=== PATIENT | male | born 1950 | race Caucasian/White ===

== ENCOUNTER 2017-05-21 14:54 | Inpatient (IN) | payer MEDICARE ==
[~2017-05-21] VITALS: Ht 188 cm; Wt 71.8 kg
[~2017-05-21 14:54] MED LIST: AMIO200T42 PO; ATOR40TA PO; CARV6.2512 PO; ENAL20TA PO; FURO-92 PO; GLIP10TA13 PO; GLYBURIDE; LASIX PO; LISI-167 PO; METF-86 PO; POTA20TA89 PO; POTASSIUM PO; TAMS-11 PO; WARF3TAB PO
[2017-05-21] MEDS ORDERED: FENTANYL PF 100 MCG/2ML ONE (15:28)
[2017-05-21] MEDS ORDERED: MIDAZOLAM 1 MG/ML, 5ML ONE (15:28)
[2017-05-21] MEDS ORDERED: TICAGRELOR 90 MG TABLET ONE (15:29)
[2017-05-21] MEDS ORDERED: BIVALIRUDIN 250 MG ONE ×2 (15:29→16:36)
[2017-05-21] MEDS ORDERED: VERAPAMIL 2.5 MG/ML, 2ML ONE (15:29)
[2017-05-21] MEDS ORDERED: LIDOCAINE 2%, 20ML ONE (15:29)
[2017-05-21] MEDS ORDERED: HEPARIN 1,000 UNITS/ML, 10ML ONE (15:29)
[2017-05-21] MEDS ORDERED: SODIUM CHLORIDE 0.9% 1,000ML IVBOLUS ONE (15:30)
[2017-05-21] MEDS ORDERED: SODIUM CHLORIDE 0.9% 1,000 ML IV SCH (15:30)
[2017-05-21] MEDS ORDERED: ASPIRIN 325 MG TABLET PO STA (15:30)
[2017-05-21] MEDS ORDERED: ONDANSETRON 2MG/ML, 2ML IM ONE (15:30)
[2017-05-21 15:58] LABS: BLOOD UREA NITROGEN 16 mg/dL (7-18)
[2017-05-21] MEDS ORDERED: ONDANSETRON 2MG/ML, 2ML IVPush PRN (16:00)
[2017-05-21] MEDS ORDERED: BISACODYL 5 MG EC TABLET PO PRN (16:00)
[2017-05-21] MEDS ORDERED: LABETALOL 5MG/ML, 20ML ONE (16:00)
[2017-05-21] MEDS ORDERED: ACETAMINOPHEN 325 MG TABLET PO PRN (16:00)
[2017-05-21] MEDS ORDERED: morphine SULFATE 10 MG/ML, 1ML IVPush PRN (16:00)
[2017-05-21] MEDS ORDERED: ZOLPIDEM 5MG TABLET PO PRN (16:00)
[2017-05-21] MEDS ORDERED: ASPIRIN 325 MG TABLET EC ONE (16:12)
[2017-05-21 16:20] LABS: IS PT STATUS REG ER OR PRE ER? YES
[2017-05-21] MEDS: CARVEDILOL 25 MG TABLET PO SCH (18:46)
[2017-05-21] MEDS: ENALAPRIL 10 MG TABLET PO SCH (20:32)
[2017-05-21] MEDS: TAMSULOSIN 0.4 MG CAP.ER.24H PO SCH (20:32)
[2017-05-21] MEDS ORDERED: ATORVASTATIN 40 MG TABLET PO SCH (21:00)
[2017-05-21 22:39] LABS: IS PT STATUS REG ER OR PRE ER? NO
[2017-05-22] MEDS: CARVEDILOL 25 MG TABLET PO SCH ×2 (05:44→19:47)
[2017-05-22] MEDS: ASPIRIN 81 MG TABLET EC PO SCH (05:44)
[2017-05-22 05:54] LABS: BLOOD UREA NITROGEN 20 mg/dL (7-18)
[2017-05-22 06:16] LABS: IS PT STATUS REG ER OR PRE ER? NO
[2017-05-22] MEDS ORDERED: TICAGRELOR 90 MG TABLET PO SCH (08:00)
[2017-05-22] MEDS ORDERED: POTASSIUM CHLORIDE 20 MEQ TAB.ER.PRT PO ONE (09:00)
[2017-05-22] MEDS: ENALAPRIL 10 MG TABLET PO SCH ×2 (09:00→19:47)
[2017-05-22] MEDS ORDERED: FUROSEMIDE 40 MG TABLET PO SCH (09:00)
[2017-05-22] MEDS: FINASTERIDE 5 MG TABLET PO SCH (09:23)
[2017-05-22] MEDS: GLIPizide ER 5 MG TABLET PO SCH (09:24)
[2017-05-22] MEDS: EZETIMIBE 10 MG TABLET PO SCH (09:24)
[2017-05-22] MEDS: GlyBURIDE 5 MG TABLET PO SCH (09:24)
[2017-05-22 19:44] VITALS: BP 108/66
[2017-05-22] MEDS: ATORVASTATIN 80 MG TABLET PO SCH (19:47)
[2017-05-22] MEDS: TAMSULOSIN 0.4 MG CAP.ER.24H PO SCH (19:47)
[2017-05-22] MEDS: TICAGRELOR 90 MG TABLET PO SCH (21:59)
[2017-05-23 01:32] VITALS: BP 103/57
[2017-05-23 05:27] LABS: BLOOD UREA NITROGEN 33 mg/dL (7-18)
[2017-05-23] MEDS: ASPIRIN 81 MG TABLET EC PO SCH (05:29)
[2017-05-23] MEDS: CARVEDILOL 25 MG TABLET PO SCH ×2 (05:31→17:40)
[2017-05-23] MEDS ORDERED: TICAGRELOR 90 MG TABLET PO SCH (09:00)
[2017-05-23 09:11] VITALS: BP 93/59
[2017-05-23] MEDS: EZETIMIBE 10 MG TABLET PO SCH (09:12)
[2017-05-23] MEDS: FINASTERIDE 5 MG TABLET PO SCH (09:13)
[2017-05-23] MEDS: GlyBURIDE 5 MG TABLET PO SCH (09:13)
[2017-05-23] MEDS: TICAGRELOR 90 MG TABLET PO SCH ×2 (09:13→19:54)
[2017-05-23] MEDS: GLIPizide ER 5 MG TABLET PO SCH (09:13)
[2017-05-23] MEDS: ENALAPRIL 10 MG TABLET PO SCH (09:13)
[2017-05-23 10:57] VITALS: BP 120/72
[2017-05-23] MEDS: FUROSEMIDE 40 MG TABLET PO SCH (10:58)
[2017-05-23 17:39] VITALS: BP 138/81
[2017-05-23 18:27] VITALS: BP 115/69
[2017-05-23] MEDS: TAMSULOSIN 0.4 MG CAP.ER.24H PO SCH (19:54)
[2017-05-23] MEDS: ATORVASTATIN 80 MG TABLET PO SCH (19:54)
[2017-05-24 03:26] VITALS: BP 146/73
[2017-05-24 05:22] LABS: BLOOD UREA NITROGEN 28 mg/dL (7-18)
[2017-05-24 06:17] VITALS: BP 138/78
[2017-05-24] MEDS: ASPIRIN 81 MG TABLET EC PO SCH (06:18)
[2017-05-24] MEDS: CARVEDILOL 25 MG TABLET PO SCH (06:18)
[2017-05-24 06:40] VITALS: BP 125/79
[2017-05-24] MEDS: GlyBURIDE 5 MG TABLET PO SCH (07:55)
[2017-05-24] MEDS: EZETIMIBE 10 MG TABLET PO SCH (07:55)
[2017-05-24] MEDS: GLIPizide ER 5 MG TABLET PO SCH (07:55)
[2017-05-24] MEDS: FINASTERIDE 5 MG TABLET PO SCH (07:55)
[2017-05-24] MEDS: TICAGRELOR 90 MG TABLET PO SCH (07:55)
[2017-05-24] MEDS: FUROSEMIDE 40 MG TABLET PO SCH (07:56)
[2017-05-24] MEDS ORDERED: ENAL2.5T32 PO (08:20)
[2017-05-24] MEDS ORDERED: ASPI-621 PO (08:20)
[2017-05-24] MEDS ORDERED: ATOR80TA75 PO (08:20)
[2017-05-24] MEDS ORDERED: TICA90TA PO (08:20)
[2017-05-24] MEDS ORDERED: ENALAPRIL 10 MG TABLET PO SCH (09:00)
== END 2017-05-24 11:25 | disposition home or self-care (01) | DRG 247 ==
LOC: ED 15:36 → EDIP 15:37 → ED 15:42 → CCU 16:25 → 5SO 05-22 09:57 → DCLOUNGE 05-24 10:46
PROVIDERS: ADMIT Internal Medicine Cardiovascular Disease; ATTEND Internal Medicine Cardiovascular Disease
PROC: 027034Z Dilation of Coronary Artery, One Artery with Drug-eluting Intraluminal Device, Percutaneous Approach (ICD-10-PCS; principal; 2017-05-21)
PROC: 4A023N7 Measurement of Cardiac Sampling and Pressure, Left Heart, Percutaneous Approach (ICD-10-PCS; 2017-05-21)
PROC: B2111ZZ Fluoroscopy of Multiple Coronary Arteries using Low Osmolar Contrast (ICD-10-PCS; 2017-05-21)
DX: I21.09 ST elevation (STEMI) myocardial infarction involving other coronary artery of anterior wall (principal); I25.5 Ischemic cardiomyopathy; I10 Essential (primary) hypertension; I25.2 Old myocardial infarction; E78.5 Hyperlipidemia, unspecified; E11.65 Type 2 diabetes mellitus with hyperglycemia; E11.21 Type 2 diabetes mellitus with diabetic nephropathy; I07.1 Rheumatic tricuspid insufficiency; E78.00 Pure hypercholesterolemia, unspecified; I25.10 Atherosclerotic heart disease of native coronary artery without angina pectoris; J44.9 Chronic obstructive pulmonary disease, unspecified; N40.0 Benign prostatic hyperplasia without lower urinary tract symptoms; Z79.01 Long term (current) use of anticoagulants; Z79.82 Long term (current) use of aspirin; Z87.891 Personal history of nicotine dependence; Z95.810 Presence of automatic (implantable) cardiac defibrillator
CPT/HCPCS: 36415; 71010; 80047; 80048; 80061; 82010; 82040; 82800; 82962; 83735; 83880; 84484; 85025; 85610; 85730; 87081; 93005; 93454; 99156; 99157; 99285; C1760; C1894; C8929; J0583; J1644; J2250; J3010; J3490; C1725; C1769; C1874; C1887; Q9967

== ENCOUNTER 2018-06-01 17:58 | Inpatient (IN) | payer MEDICARE, OTHER ==
[~2018-06-01] VITALS: Ht 185.4 cm; Wt 77.0 kg
[~2018-06-01 17:58] MED LIST changes: +ASPI-621 PO; +ATOR-2 PO; +ENAL2.5T32 PO; +METF-162 PO; -METF-86 PO; +TICA90TA PO
[2018-06-01] MEDS ORDERED: POTA20PA PO (18:43)
[2018-06-01] MEDS ORDERED: WARF1TAB PO (18:43)
[2018-06-01] MEDS ORDERED: FINA5TAB4 PO (18:43)
[2018-06-01] MEDS ORDERED: ONDANSETRON ODT 4 MG ONE (18:52)
[2018-06-01] MEDS ORDERED: ONDANSETRON ODT 4 MG PO ONE (19:00)
[2018-06-01 19:11] LABS: BASOPHILS # (AUTO) 0.04 x10^3/uL (0-0.1); BASOPHILS % (AUTO) 0 % (0-1); EOSINOPHILS # (AUTO) 0.24 x10^3/uL (0-0.4); EOSINOPHILS % (AUTO) 2 % (1-7); LYMPHOCYTES # (AUTO) 1.03 x10^3/uL (1-3.4); LYMPHOCYTES % (AUTO) 10 % (22-44); MD NO; MEAN CORPUSCULAR HGB CONC 32.9 g/dL (33.2-36.2); MEAN CORPUSCULAR VOLUME 85.1 fL (81-97); MEAN PLATELET VOLUME 7.7 fL (7.4-10.4); MONOCYTES # (AUTO) 0.61 x10^3/uL (0.2-0.8); MONOCYTES % (AUTO) 6 % (2-9); NEUTROPHILS # (AUTO) 8.86 x10^3/uL (1.8-6.8); NEUTROPHILS % (AUTO) 82 % (42-75); PLATELET COUNT 262 x10^3/uL (130-400); RED BLOOD COUNT 4.62 x10^6/uL (4.38-5.82); RED CELL DISTRIBUTION WIDTH 13.6 % (9.4-14.8)
[2018-06-01 19:21] LABS: ALANINE AMINOTRANSFERASE 15 U/L (12-78); ALBUMIN 3.8 g/dL (3.4-5.0); ANION GAP 7 mmol/L (5-15); CALCIUM 9.3 mg/dL (8.5-10.1); CHLORIDE 111 mmol/L (98-107); CREATININE 2.74 mg/dL (0.7-1.3)
[2018-06-01 19:25] LABS: ALKALINE PHOSPHATASE 79 U/L (45-117); BILIRUBIN,TOTAL 0.7 mg/dL (0.2-1.0); TOTAL PROTEIN 7.8 g/dL (6.4-8.2); TROPONIN I < 0.015 ng/mL (0.000-0.045)
[2018-06-01 19:38] LABS: MICROSCOPIC NOT IND
[2018-06-01 19:40] LABS: CULTURE INDICATED? NO
[2018-06-01] MEDS ORDERED: SODIUM CHLORIDE 0.9% 1,000ML IVBOLUS ONE (20:00)
[2018-06-01] MEDS ORDERED: SODIUM CHLORIDE 0.9% 1,000 ML IV ONE (20:09)
[2018-06-01] MEDS ORDERED: SODIUM CHLORIDE 0.9% 1,000 ML IV SCH (20:23)
[2018-06-01] MEDS ORDERED: HEPARIN 5,000 UNITS/ML, 1ML SQ SCH (20:30)
[2018-06-01] MEDS ORDERED: BISACODYL 10 MG SUPP PR PRN (20:30)
[2018-06-01] MEDS ORDERED: POLYETHYLENE GLYCOL 17 GM PACKET PO PRN (20:30)
[2018-06-01] MEDS ORDERED: DOCUSATE 100 MG CAPSULE PO PRN (20:30)
[2018-06-01] MEDS ORDERED: ACETAMINOPHEN 325 MG TABLET PO PRN (20:30)
[2018-06-01] MEDS ORDERED: MAALOX/HYOSCYAMINE/LIDOCAINE 45 ML BTL PO ONE (20:30)
[2018-06-01] MEDS ORDERED: ONDANSETRON 2MG/ML, 2ML IVPush PRN ×2 (20:30)
[2018-06-01 20:38] LABS: PROTHROMBIN TIME 10.4 Seconds (9.6-11.5)
[2018-06-01 21:38] VITALS: BP 137/74
[2018-06-01 21:50] VITALS: BP 137/74
[2018-06-01] MEDS: ATORVASTATIN 80 MG TABLET PO SCH (22:32)
[2018-06-01] MEDS: TICAGRELOR 90 MG TABLET PO SCH (22:32)
[2018-06-01] MEDS: SUCRALFATE 1 GM/10 ML UDC PO SCH (22:32)
[2018-06-01] MEDS: SODIUM CHLORIDE 0.9% 1,000 ML IV SCH (22:45)
[2018-06-02 02:12] VITALS: BP 146/77
[2018-06-02 02:23] LABS: CREATININE,URINE RANDOM 78.5 mg/dL
[2018-06-02 05:20] LABS: INTERNATIONAL NORMALIZED RATIO 1.02 (0.93-1.1); PROTHROMBIN TIME 10.6 Seconds (9.6-11.5)
[2018-06-02 05:28] LABS: CHLORIDE 115 mmol/L (98-107)
[2018-06-02 05:33] LABS: BASOPHILS # (AUTO) 0.05 x10^3/uL (0-0.1); BASOPHILS % (AUTO) 1 % (0-1); EOSINOPHILS # (AUTO) 0.23 x10^3/uL (0-0.4); EOSINOPHILS % (AUTO) 3 % (1-7); LYMPHOCYTES # (AUTO) 1.41 x10^3/uL (1-3.4); LYMPHOCYTES % (AUTO) 20 % (22-44); MD NO; MEAN CORPUSCULAR HEMOGLOBIN 27.7 pg (27.5-34.5); MEAN CORPUSCULAR HGB CONC 33.1 g/dL (33.2-36.2); MEAN CORPUSCULAR VOLUME 83.8 fL (81-97); MEAN PLATELET VOLUME 7.9 fL (7.4-10.4); MONOCYTES # (AUTO) 0.55 x10^3/uL (0.2-0.8); MONOCYTES % (AUTO) 8 % (2-9); NEUTROPHILS # (AUTO) 4.85 x10^3/uL (1.8-6.8); NEUTROPHILS % (AUTO) 69 % (42-75); PLATELET COUNT 229 x10^3/uL (130-400); RED BLOOD COUNT 4.15 x10^6/uL (4.38-5.82); RED CELL DISTRIBUTION WIDTH 13.4 % (9.4-14.8)
[2018-06-02 05:44] LABS: ANION GAP 6 mmol/L (5-15); CALCIUM 8.4 mg/dL (8.5-10.1); CREATININE 2.11 mg/dL (0.7-1.3)
[2018-06-02] MEDS: ASPIRIN 81 MG TABLET EC PO SCH (05:45)
[2018-06-02 07:25] VITALS: BP 147/72
[2018-06-02] MEDS: FINASTERIDE 5 MG TABLET PO SCH (08:07)
[2018-06-02] MEDS: TAMSULOSIN 0.4 MG CAP.ER.24H PO SCH (08:08)
[2018-06-02] MEDS: TICAGRELOR 90 MG TABLET PO SCH ×2 (08:08→22:06)
[2018-06-02] MEDS: CARVEDILOL 6.25 MG TABLET PO SCH (08:08)
[2018-06-02] MEDS: SUCRALFATE 1 GM/10 ML UDC PO SCH ×4 (08:08→22:06)
[2018-06-02] MEDS ORDERED: TEMPLATE NON-FORMULARY MED. (Warfarin Sodium** (Coumadin**) 3 MG) PO SCH (09:00)
[2018-06-02 12:19] VITALS: BP 150/80
[2018-06-02 19:29] VITALS: BP 136/73
[2018-06-02] MEDS: ATORVASTATIN 80 MG TABLET PO SCH (22:06)
[2018-06-03 00:50] VITALS: BP 111/63
[2018-06-03 01:23] VITALS: BP 155/75
[2018-06-03] MEDS: SODIUM CHLORIDE 0.9% 1,000 ML IV SCH (01:25)
[2018-06-03 05:25] LABS: BASOPHILS # (AUTO) 0.05 x10^3/uL (0-0.1); BASOPHILS % (AUTO) 1 % (0-1); EOSINOPHILS # (AUTO) 0.21 x10^3/uL (0-0.4); EOSINOPHILS % (AUTO) 3 % (1-7); LYMPHOCYTES # (AUTO) 1.23 x10^3/uL (1-3.4); LYMPHOCYTES % (AUTO) 16 % (22-44); MD NO; MEAN CORPUSCULAR HGB CONC 33.3 g/dL (33.2-36.2); MEAN CORPUSCULAR VOLUME 83.9 fL (81-97); MEAN PLATELET VOLUME 7.6 fL (7.4-10.4); MONOCYTES # (AUTO) 0.55 x10^3/uL (0.2-0.8); MONOCYTES % (AUTO) 7 % (2-9); NEUTROPHILS # (AUTO) 5.92 x10^3/uL (1.8-6.8); NEUTROPHILS % (AUTO) 74 % (42-75); PLATELET COUNT 220 x10^3/uL (130-400); RED CELL DISTRIBUTION WIDTH 13.4 % (9.4-14.8)
[2018-06-03 05:30] LABS: INTERNATIONAL NORMALIZED RATIO 1.04 (0.93-1.1); PROTHROMBIN TIME 10.8 Seconds (9.6-11.5)
[2018-06-03 05:38] LABS: ANION GAP 7 mmol/L (5-15); CALCIUM 7.7 mg/dL (8.5-10.1); CHLORIDE 117 mmol/L (98-107)
[2018-06-03 05:40] LABS: CREATININE 1.56 mg/dL (0.7-1.3)
[2018-06-03] MEDS: ASPIRIN 81 MG TABLET EC PO SCH (05:47)
[2018-06-03 07:05] VITALS: BP 147/73
[2018-06-03] MEDS: TAMSULOSIN 0.4 MG CAP.ER.24H PO SCH (08:43)
[2018-06-03] MEDS: CARVEDILOL 6.25 MG TABLET PO SCH (08:43)
[2018-06-03] MEDS: SUCRALFATE 1 GM/10 ML UDC PO SCH ×4 (08:43→21:40)
[2018-06-03] MEDS: FINASTERIDE 5 MG TABLET PO SCH (08:43)
[2018-06-03] MEDS: TICAGRELOR 90 MG TABLET PO SCH ×2 (08:43→19:42)
[2018-06-03 14:37] VITALS: BP 137/73
[2018-06-03 19:24] VITALS: BP 146/70
[2018-06-03] MEDS: ATORVASTATIN 80 MG TABLET PO SCH (19:42)
[2018-06-04 03:47] VITALS: BP 112/66
[2018-06-04 05:40] LABS: ANION GAP 8 mmol/L (5-15); CALCIUM 7.8 mg/dL (8.5-10.1); CHLORIDE 115 mmol/L (98-107)
[2018-06-04 05:43] LABS: CREATININE 1.19 mg/dL (0.7-1.3)
[2018-06-04] MEDS: ASPIRIN 81 MG TABLET EC PO SCH (06:04)
[2018-06-04 06:42] VITALS: BP 166/87
[2018-06-04] MEDS: SUCRALFATE 1 GM/10 ML UDC PO SCH ×2 (08:27→11:11)
[2018-06-04] MEDS ORDERED: SUCR1ORA5 PO (09:24)
[2018-06-04] MEDS ORDERED: ONDA4TAB7 PO (09:24)
[2018-06-04] MEDS ORDERED: PANT40TA3 PO (09:24)
[2018-06-04] MEDS ORDERED: FURO-93 PO (09:32)
[2018-06-04] MEDS ORDERED: POTA10TA11 PO (09:32)
[2018-06-04] MEDS: TICAGRELOR 90 MG TABLET PO SCH (11:09)
[2018-06-04] MEDS: FINASTERIDE 5 MG TABLET PO SCH (11:09)
[2018-06-04] MEDS: CARVEDILOL 6.25 MG TABLET PO SCH (11:10)
[2018-06-04] MEDS: TAMSULOSIN 0.4 MG CAP.ER.24H PO SCH (11:10)
== END 2018-06-04 14:05 | disposition home or self-care (01) | DRG 683 ==
LOC: ED 20:08 → EDIP 20:09 → 3NE 21:00 → DCLOUNGE 06-04 13:46
PROVIDERS: ADMIT Internal Medicine; ATTEND Internal Medicine
DX: N17.0 Acute kidney failure with tubular necrosis (principal); I50.22 Chronic systolic (congestive) heart failure; E86.9 Volume depletion, unspecified; D72.829 Elevated white blood cell count, unspecified; I25.10 Atherosclerotic heart disease of native coronary artery without angina pectoris; I11.9 Hypertensive heart disease without heart failure; I25.5 Ischemic cardiomyopathy; E11.65 Type 2 diabetes mellitus with hyperglycemia; E78.00 Pure hypercholesterolemia, unspecified; E78.5 Hyperlipidemia, unspecified; E86.0 Dehydration; I11.0 Hypertensive heart disease with heart failure; J44.9 Chronic obstructive pulmonary disease, unspecified; R33.9 Retention of urine, unspecified; K21.9 Gastro-esophageal reflux disease without esophagitis; N40.1 Benign prostatic hyperplasia with lower urinary tract symptoms; Z79.84 Long term (current) use of oral hypoglycemic drugs; Z83.3 Family history of diabetes mellitus; Z87.891 Personal history of nicotine dependence; I25.2 Old myocardial infarction; Z95.5 Presence of coronary angioplasty implant and graft; Z95.810 Presence of automatic (implantable) cardiac defibrillator
CPT/HCPCS: 36415; 76770; 80048; 80053; 81003; 82436; 82570; 83690; 84133; 84300; 84484; 85025; 85610; 93005; Q0162; J7030

== ENCOUNTER 2019-07-04 19:39 | Emergency (ER) | payer MEDICARE, OTHER ==
[~2019-07-04] VITALS: Ht 185.4 cm; Wt 71.6 kg
[~2019-07-04 19:39] MED LIST changes: -ASPI-621 PO; +ASPI81TA45 PO; +FINA5TAB4 PO; +FURO-93 PO; +ONDA4TAB7 PO; +PANT40TA3 PO; +POTA10TA11 PO; +POTA20PA31 PO; +SUCR1ORA5 PO; +WARF1TAB PO
[2019-07-04 20:37] LABS: MICROSCOPIC AUTO
[2019-07-04 20:38] LABS: CULTURE INDICATED? NO
--- NOTE | 2019-07-04 20:48 | NUR ---
LATE ENTRY FOR TIME OF ARRIVAL TO ROOM. BLADDER SCAN PERFORMED WHICH READ >999ML. [place] PLACED PER ORDER. APPROX 1400ML OUT. POST PLACEMENT PT STATES RELIEF HOWEVER STILL REMAINS TACHYCARDIC. AWARE. POC DISCUSSED. PT DENIES FURTHER NEEDS AT THIS TIME.
--- NOTE | 2019-07-04 21:48 | NUR ---
PT CONFESSED TO THE ER MD AND THIS RN THAT HE USED METH YESTERDAY WHICH HE RELATES TO HIS ELEVATED HR. PT COUNSELLED ON STOPPING USE OF METH. PT STATES UNDERSTANDING.
[2019-07-04 21:49] VITALS: BP 138/74
== END 2019-07-04 21:51 | disposition home or self-care (01) ==
LOC: ED 19:54
DX: N40.1 Benign prostatic hyperplasia with lower urinary tract symptoms (principal); R33.8 Other retention of urine; R00.0 Tachycardia, unspecified; F15.10 Other stimulant abuse, uncomplicated; I10 Essential (primary) hypertension; E11.9 Type 2 diabetes mellitus without complications; E78.00 Pure hypercholesterolemia, unspecified; I25.2 Old myocardial infarction
CPT/HCPCS: 51702; 81001; 93005; 99284

== ENCOUNTER → 2019-12-31 | Outpatient (CLI) | payer MEDICARE ==
[~2019-12-31] MED LIST changes: +REGADENOSON 0.4 MG/5 ML SYRINGE ONE
== END | disposition home or self-care (01) ==
LOC: CFH 07:57
PROVIDERS: ATTEND Internal Medicine Cardiovascular Disease
DX: I25.5 Ischemic cardiomyopathy (principal); R29.898 Other symptoms and signs involving the musculoskeletal system
CPT/HCPCS: 78452; 93017; A9502; J2785

== ENCOUNTER 2020-05-10 08:49 | Outpatient (CLI) | payer MEDICARE ==
[~2020-05-10 08:49] MED LIST changes: -REGADENOSON 0.4 MG/5 ML SYRINGE ONE; -WARF1TAB PO; +WARF1TAB2 PO
== END 2020-05-10 23:59 | disposition home or self-care (01) ==
LOC: CFH 08:49
PROVIDERS: ATTEND Physician Assistant
DX: Z02.9 Encounter for administrative examinations, unspecified (principal)

== ENCOUNTER 2020-06-28 13:40 | Outpatient (CLI) | payer MEDICARE | END 2020-06-28 23:59 | disposition home or self-care (01) | LOC: CFH 13:40 | PROVIDERS: ATTEND Internal Medicine Cardiovascular Disease | DX: I07.1 Rheumatic tricuspid insufficiency (principal); I25.5 Ischemic cardiomyopathy; I25.10 Atherosclerotic heart disease of native coronary artery without angina pectoris; E78.5 Hyperlipidemia, unspecified; I10 Essential (primary) hypertension; E11.9 Type 2 diabetes mellitus without complications; I27.20 Pulmonary hypertension, unspecified | CPT/HCPCS: 93306; 93356 ==

== ENCOUNTER 2020-11-23 09:47 | Day surgery (SDC) | payer MEDICARE ==
[~2020-11-23] VITALS: Ht 185.4 cm; Wt 68.2 kg
[~2020-11-23 09:47] MED LIST changes: -ENAL20TA PO; +ENAL20TA9 PO
[2020-11-23] MEDS ORDERED: CARV-39 PO (11:13)
[2020-11-23 11:21] LABS: BASOPHILS % (AUTO) 1 % (0-1); EOSINOPHILS % (AUTO) 3 % (1-7); LYMPHOCYTES % (AUTO) 22 % (22-44); MEAN CORPUSCULAR HEMOGLOBIN 28.2 pg (27.5-34.5); MEAN CORPUSCULAR HGB CONC 33.1 g/dL (33.2-36.2); MEAN PLATELET VOLUME 7.5 fL (7.4-10.4); MONOCYTES % (AUTO) 6 % (2-9); NEUTROPHILS % (AUTO) 68 % (42-75); PLATELET COUNT 198 x10^3/uL (130-400); RED BLOOD COUNT 4.85 x10^6/uL (4.38-5.82); RED CELL DISTRIBUTION WIDTH 13.8 % (9.4-14.8)
[2020-11-23 11:27] LABS: MD NO
[2020-11-23] MEDS ORDERED: FENTANYL PF 100 MCG/2ML ONE (11:30)
[2020-11-23] MEDS ORDERED: SODIUM CHLORIDE 0.9% 1,000 ML IV SCH (11:30)
[2020-11-23] MEDS ORDERED: MIDAZOLAM 1 MG/ML, 5ML ONE (11:30)
[2020-11-23] MEDS ORDERED: CEFAZOLIN PMX 1GM/50ML 50 ML ONE (11:30)
[2020-11-23] MEDS ORDERED: CEFAZOLIN PMX 1GM/50ML 50 ML IVPB ONE (11:30)
[2020-11-23 11:31] LABS: ALANINE AMINOTRANSFERASE 14 U/L (12-78); ANION GAP 3 mmol/L (5-15); CALCIUM 8.9 mg/dL (8.5-10.1); CHLORIDE 111 mmol/L (98-107); CREATININE 1.19 mg/dL (0.7-1.3)
[2020-11-23] MEDS ORDERED: LIDOCAINE 2%, 20ML ONE (11:31)
[2020-11-23] MEDS ORDERED: CEFAZOLIN 1,000 MG ONE (11:31)
[2020-11-23 11:34] LABS: ALKALINE PHOSPHATASE 58 U/L (45-117); BILIRUBIN,TOTAL 0.9 mg/dL (0.2-1.0); CHOL/HDL RATIO 3.2; CHOLESTEROL, TOTAL 158 mg/dL (140-239); HDL CHOL % 32 % (26-37); HDL CHOLESTEROL (DIRECT) 50 mg/dL (40-60); LDL CHOLESTEROL,CALCULATED 83 mg/dL (54-169); LDL/HDL RATIO 1.7 (0.5-3.0); TOTAL PROTEIN 7.3 g/dL (6.4-8.2); TRIGLYCERIDES 124 mg/dL (50-200); VLDL CHOLESTEROL 25 mg/dL (0-25)
[2020-11-23 11:38] VITALS: BP 172/91
[2020-11-23] MEDS ORDERED: HYDROcodone/APAP 5/325 TABLET PO PRN (13:00)
[2020-11-23] MEDS ORDERED: HOLD MEDICATION MC PRN (13:00)
[2020-11-23] MEDS ORDERED: SODIUM CHLORIDE FLUSH 10ML SYR IVF SCH (21:00)
== END 2020-11-23 13:40 | disposition home or self-care (01) ==
LOC: CACL 09:47
PROVIDERS: ATTEND Internal Medicine Cardiovascular Disease
DX: Z45.02 Encounter for adjustment and management of automatic implantable cardiac defibrillator (principal); I47.1 Supraventricular tachycardia; J44.9 Chronic obstructive pulmonary disease, unspecified; E78.5 Hyperlipidemia, unspecified; I25.5 Ischemic cardiomyopathy; I25.2 Old myocardial infarction; Z79.899 Other long term (current) drug therapy; Z79.82 Long term (current) use of aspirin; Z98.61 Coronary angioplasty status; Z87.891 Personal history of nicotine dependence; Z82.49 Family history of ischemic heart disease and other diseases of the circulatory system; Z98.890 Other specified postprocedural states
CPT/HCPCS: 33263; 36415; 71046; 80053; 80061; 85025; 93005; 99156; 99157; C1721; J0690; J2250; J3010; 33228; C1785